=== PATIENT | female | born 1945 | race Caucasian/White ===

== ENCOUNTER → 2018-01-23 | Outpatient (CLI) | payer MEDICARE ==
[~2018-01-23] MED LIST: ASPI81EC PO; CALCAVITDA PO; CAYENNE PO; CRANBERRY PO; FISH OIL PO; MULTIVITAMIN PO; OMEGA PO; [UNRECOGNIZED DRUG - OTHER] PO
== END | disposition home or self-care (01) ==
LOC: LAB 14:30 → LAB SHORT 14:30
PROVIDERS: Obstetrics & Gynecology
DX: Z01.419 Encounter for gynecological examination (general) (routine) without abnormal findings (principal)
CPT/HCPCS: 87624; G0123

== ENCOUNTER 2018-11-13 07:24 | Day surgery (SDC) | payer MEDICARE ==
[~2018-11-13] VITALS: Ht 157.5 cm; Wt 52.7 kg
[~2018-11-13 07:24] MED LIST changes: +FISH OIL 1,0001 EAC1 PO; +Hair, Skin & N1 EACH PO; +MELATIN3 MG PO; +NAPR220 PO; +Neurontin 300300 MG PO
== END 2018-11-13 09:53 | disposition home or self-care (01) ==
LOC: ORSCSDS 07:24
PROVIDERS: Internal Medicine Gastroenterology
PROC: 0DBP8ZX Excision of Rectum, Via Natural or Artificial Opening Endoscopic, Diagnostic (ICD-10-PCS; principal; 2018-11-13 08:45)
DX: Z12.11 Encounter for screening for malignant neoplasm of colon (principal); K62.1 Rectal polyp; K64.8 Other hemorrhoids; K57.30 Diverticulosis of large intestine without perforation or abscess without bleeding; J44.9 Chronic obstructive pulmonary disease, unspecified; K21.9 Gastro-esophageal reflux disease without esophagitis; M79.7 Fibromyalgia; Z87.891 Personal history of nicotine dependence; Z79.899 Other long term (current) drug therapy
CPT/HCPCS: 88305; J0330; J0461; J1980; J2405; J2704; J7120

== ENCOUNTER → 2021-07-20 | Outpatient (CLI) | payer MEDICARE ==
[~2021-07-20] MED LIST changes: +LOSA50 PO
[2021-07-21 15:11] LABS: HPV 16 Negative (Negative); HPV 18 Negative (Negative); HPV OTHER HR TYPES Negative (Negative)
== END | disposition home or self-care (01) ==
LOC: LAB SHORT 10:44
PROVIDERS: Obstetrics & Gynecology
DX: Z01.419 Encounter for gynecological examination (general) (routine) without abnormal findings (principal)